=== PATIENT | male | born 1995 | race Two or more races ===

== ENCOUNTER 2025-01-31 20:53 | Day surgery (SDC) | payer OTHER, SELFPAY ==
[2025-01-31 14:46] VITALS: BP 160/108
[2025-01-31 15:22] LABS: Hematocrit 48.3 % (39.0-52.0); Hemoglobin 16.3 g/dL (13.0-18.0); Mean Corp Hgb Conc. 33.7 g/dL (33.0-37.0); Mean Corpuscular Volume 82.7 fL (80.0-94.0); Nucleated Red Blood Cells % 0 % (-); Platelet Count 296 10^3/uL (130-400); Red Cell Dist. Width 11.7 % (11.5-14.5)
[2025-01-31 15:25] LABS: ALT (SGPT) 23 U/L (0-50); AST (SGOT) 26 U/L (17-59); Albumin 5.6 g/dl (3.5-5.0); Alkaline Phosphatase 63 U/L (38-126); Blood Urea Nitrogen 14 mg/dl (9-20); Calcium 10.5 mg/dl (8.4-10.2); Carbon Dioxide 31 mmol/L (22-30); Chloride 98 mmol/L (98-107); Glucose 118 mg/dl (70-99); Lipase 172 U/L (23-300); Potassium 4.8 mmol/L (3.5-5.1); Sodium 141 mmol/L (135-145); Total Protein 9.3 g/dl (6.3-8.2); eGFR > 60.00
[2025-01-31 15:39] LABS: Troponin I < 0.012 ng/ml
[2025-01-31 18:09] VITALS: BP 129/79; BMI 25.4
[2025-01-31] MEDS: MAALOX 50 PO (18:37)
[2025-01-31 19:28] VITALS: BP 117/87
--- NOTE | 2025-01-31 19:30 | ED.GENMED ---
History of Present Illness
<Ana Price PA-C - Last Filed: 02/01/25 10:48>
General
Chief Complaint: Abdominal Pain
Source: patient
Exam Limitations: none
Time Seen by Provider: 01/31/25 18:08
Nursing documentation reviewed up to this point in time: agreed with
History of Present Illness
History of Present Illness:
Patient is a 29-year-old male who presents to the emergency department with 1 day of abdominal pain. He states that he was at his job site earlier this morning when he developed pain in the middle of his abdomen. He felt that abdominal pain
started to migrate up to his upper abdomen/lower chest. He had a few episodes of vomiting. He denies any known fever. No diarrhea or constipation. He denies any associated shortness of breath, lightheadedness/dizziness, or diaphoresis.
By time of my assessment, patient still describes a vague discomfort in epigastric region. He has not had any vomiting since arriving to the emergency department. He denies any exertional or cardiac component to symptoms.
He has no urinary complaints.
Patient is currently in town for work although lives in [place].
Review of Systems
<Ana Price PA-C - Last Filed: 02/01/25 10:48>
Review of Systems
Allergies reviewed?: Yes
All Other Systems: ROS reviewed and negative except as documented in HPI and ROS
Phy Exam
<Ana Price PA-C - Last Filed: 02/01/25 10:48>
Physical Exam
Physical Exam:
Vitals: Hypertensive on arrival, improved by my assessment. Afebrile
General: Patient is well appearing, no distress
Skin: Warm and dry, no rashes or lesions
Head: Normocephalic, atraumatic
Eyes: Sclera nonicteric.
Throat: Protecting airway
Neck: Normal ROM, no cervical spine tenderness, no meningismus
Cardiac: Regular rate and rhythm, no murmurs. No reproducible chest wall tenderness.
Pulm: Normal respiratory effort. Lungs clear bilaterally
Abdomen: Abdomen soft. Mild tenderness in epigastric region. No focal tenderness McBurney's point. No rebound or guarding.
Extremities: No evidence of cyanosis or edema
Neuro: AAOx3. Grossly intact.
Psychiatric: Normal affect.
Course
<Ana Price PA-C - Last Filed: 02/01/25 10:48>
Orders/Labs/Results
Orders:
Orders
01/31/25 14:48
Electrocardiogram (*1) Urgent
Reason for Study: Chest Pain
01/31/25 14:49
EKG- Treatment ONCE
01/31/25 15:05
Complete Blood Count/With Diff Urgent
Comprehensive Metabolic Panel Urgent
Lipase Urgent
Troponin I Urgent
01/31/25 18:16
CT Abd/pelvis W Iv Cont Urgent
Comment:
Reason For Exam: Diffuse abdominal pain
01/31/25 18:17
Mag Hydrox/Al Hydrox/Simeth [Maalox] 30 ml Phenobarb/Hyoscy/Atropine/Scop [] 10 ml Viscous Lidocaine 2% [Xylocaine Viscous Cup] 10 ml PO NOW
01/31/25 18:36
Mag Hydrox/Al Hydrox/Simeth [Maalox] 30 ml .ROUTE .STK-MED ONE
Phenobarb/Hyoscy/Atropine/Scop [] 10 ml .ROUTE .STK-MED ONE
Viscous Lidocaine 2% [Xylocaine Viscous Cup] 15 ml .ROUTE .STK-MED ONE
01/31/25 19:30
Troponin I Urgent
01/31/25 19:52
Piperacillin/Tazo 3.375 Gram [Zosyn] 3.375 gram in 50 ml IV NOW
01/31/25 20:37
Admit/Transfer Patient As Directed
Co-Sign Provider:
Level of Care: Observation services
Assign to:: Medical/Surgical
Physician / Group: Dr. Crisostomo/ surgical
Diagnosis: acute appendicitis
01/31/25 20:38
Code Status As Directed
Resuscitation Status: Full Code
PRN Pain Medication Management As Directed
May give lesser potent ordered pain med per pt: Yes
preference::
Protocol:: Medication orders for pain may be administered in a
manner that supports deferring to patient preference
when the pt is:
- Requesting an ordered lesser potent pain medication.
Least to most potent pain medications are defined
as: acetaminophen < NSAID < tramadol < opioids
(morphine, oxycodone, hydromorphone).
- Requesting a lesser dose of the same medication IF
ORDERED.
- Requesting a less intrusive route of administration
if both routes are prescribed by the provider (PO <
IV).
01/31/25 21:42
0.9% Sodium Chloride 1000 ml [Nss] 1,000 ml IV 80 mls/hr
Acetaminophen [Tylenol] 650 mg PO Q4HPRN PRN
Bisacodyl [Dulcolax] 10 mg RECTAL [id number] PRN
Docusate W/Senna [Senokot-S] 1 tablet PO BIDPRN PRN
Mag Hydrox/Al Hydrox/Simeth [Maalox] 30 ml PO Q6HPRN PRN
Ondansetron Injectable [Zofran] 4 mg IV Q6HPRN PRN
Polyethylene Glycol Powder [Miralax] 17 grams PO DAILYPRN PRN
01/31/25 21:42
Activity As Directed
Activity Level: As Tolerated
Vital Signs As Directed
Frequency: Per unit guidelines
DX Deep Vein Thrombosis Video Routine
01/31/25 21:54
HYDROmorphone [Dilaudid] 0.25 mg IV Q3HPRN PRN
02/01/25 02:00
Piperacillin/Tazo 3.375 Gram [Zosyn] 3.375 gram in 50 ml IV Q6H
02/01/25 Breakfast
NPO
Allow oral meds: Yes
Allow clear liquids: No
02/01/25 07:32
Basic Metabolic Panel IN AM
Complete Blood Count/No Diff IN AM
02/01/25 18:00
Enoxaparin Sodium [Lovenox] 30 mg SC QPM
Abnormal Lab Results
01/31/25
15:05
WBC 16.6 H 10^3/uL
(4.8-10.8)
MPV 11.1 H fL
(7.4-10.4)
Abs Immat Gran (auto) 0.1 H 10^3/uL
(0-0.05)
Absolute Neuts (auto) 14.1 H 10^3/uL
(1.4-6.5)
Neutrophils % 85.2 H %
(42.2-75.2)
Lymphocytes % 10.0 L %
(20.5-51.1)
Carbon Dioxide 31 H mmol/L
(22-30)
Glucose 118 H mg/dl
(70-99)
Calcium 10.5 H mg/dl
(8.4-10.2)
Total Protein 9.3 H g/dl
(6.3-8.2)
Albumin 5.6 H g/dl
(3.5-5.0)
01/31/25 15:05
01/31/25 15:05
Vital Signs
Initial and Last Documented VS:
Initial Vital Signs
Temp Pulse Resp BP Pulse Ox
98.3 F 61 22 160/108 100
01/31/25 14:46 01/31/25 14:46 01/31/25 14:46 01/31/25 14:46 01/31/25 14:46
Last Documented Vital Signs
Temp Pulse Resp BP Pulse Ox
98.5 F 64 16 107/66 96
02/01/25 08:32 02/01/25 08:32 02/01/25 08:32 02/01/25 08:32 02/01/25 08:32
<Edie Dickinson, - Last Filed: 01/31/25 19:34>
Orders/Labs/Results
Orders:
Orders
01/31/25 14:48
Electrocardiogram (*1) Urgent
Reason for Study: Chest Pain
01/31/25 14:49
EKG- Treatment ONCE
01/31/25 15:05
Complete Blood Count/With Diff Urgent
Comprehensive Metabolic Panel Urgent
Lipase Urgent
Troponin I Urgent
01/31/25 18:16
CT Abd/pelvis W Iv Cont Urgent
Comment:
Reason For Exam: Diffuse abdominal pain
01/31/25 18:17
Mag Hydrox/Al Hydrox/Simeth [Maalox] 30 ml Phenobarb/Hyoscy/Atropine/Scop [] 10 ml Viscous Lidocaine 2% [Xylocaine Viscous Cup] 10 ml PO NOW
01/31/25 18:36
Mag Hydrox/Al Hydrox/Simeth [Maalox] 30 ml .ROUTE .STK-MED ONE
Phenobarb/Hyoscy/Atropine/Scop [] 10 ml .ROUTE .STK-MED ONE
Viscous Lidocaine 2% [Xylocaine Viscous Cup] 15 ml .ROUTE .STK-MED ONE
01/31/25 19:30
Troponin I Urgent
01/31/25 19:52
Piperacillin/Tazo 3.375 Gram [Zosyn] 3.375 gram in 50 ml IV NOW
01/31/25 20:37
Admit/Transfer Patient As Directed
Co-Sign Provider:
Level of Care: Observation services
Assign to:: Medical/Surgical
Physician / Group: Dr. Crisostomo/ surgical
Diagnosis: acute appendicitis
01/31/25 20:38
Code Status As Directed
Resuscitation Status: Full Code
PRN Pain Medication Management As Directed
May give lesser potent ordered pain med per pt: Yes
preference::
Protocol:: Medication orders for pain may be administered in a
manner that supports deferring to patient preference
when the pt is:
- Requesting an ordered lesser potent pain medication.
Least to most potent pain medications are defined
as: acetaminophen < NSAID < tramadol < opioids
(morphine, oxycodone, hydromorphone).
- Requesting a lesser dose of the same medication IF
ORDERED.
- Requesting a less intrusive route of administration
if both routes are prescribed by the provider (PO <
IV).
01/31/25 21:42
0.9% Sodium Chloride 1000 ml [Nss] 1,000 ml IV 80 mls/hr
Acetaminophen [Tylenol] 650 mg PO Q4HPRN PRN
Bisacodyl [Dulcolax] 10 mg RECTAL [id number] PRN
Docusate W/Senna [Senokot-S] 1 tablet PO BIDPRN PRN
Mag Hydrox/Al Hydrox/Simeth [Maalox] 30 ml PO Q6HPRN PRN
Ondansetron Injectable [Zofran] 4 mg IV Q6HPRN PRN
Polyethylene Glycol Powder [Miralax] 17 grams PO DAILYPRN PRN
01/31/25 21:42
Activity As Directed
Activity Level: As Tolerated
Vital Signs As Directed
Frequency: Per unit guidelines
DX Deep Vein Thrombosis Video Routine
01/31/25 21:54
HYDROmorphone [Dilaudid] 0.25 mg IV Q3HPRN PRN
02/01/25 02:00
Piperacillin/Tazo 3.375 Gram [Zosyn] 3.375 gram in 50 ml IV Q6H
02/01/25 Breakfast
NPO
Allow oral meds: Yes
Allow clear liquids: No
02/01/25 07:32
Basic Metabolic Panel IN AM
Complete Blood Count/No Diff IN AM
02/01/25 18:00
Enoxaparin Sodium [Lovenox] 30 mg SC QPM
Abnormal Lab Results
01/31/25
15:05
WBC 16.6 H 10^3/uL
(4.8-10.8)
MPV 11.1 H fL
(7.4-10.4)
Abs Immat Gran (auto) 0.1 H 10^3/uL
(0-0.05)
Absolute Neuts (auto) 14.1 H 10^3/uL
(1.4-6.5)
Neutrophils % 85.2 H %
(42.2-75.2)
Lymphocytes % 10.0 L %
(20.5-51.1)
Carbon Dioxide 31 H mmol/L
(22-30)
Glucose 118 H mg/dl
(70-99)
Calcium 10.5 H mg/dl
(8.4-10.2)
Total Protein 9.3 H g/dl
(6.3-8.2)
Albumin 5.6 H g/dl
(3.5-5.0)
01/31/25 15:05
01/31/25 15:05
Vital Signs
Initial and Last Documented VS:
Initial Vital Signs
Temp Pulse Resp BP Pulse Ox
98.3 F 61 22 160/108 100
01/31/25 14:46 01/31/25 14:46 01/31/25 14:46 01/31/25 14:46 01/31/25 14:46
Last Documented Vital Signs
Temp Pulse Resp BP Pulse Ox
98.5 F 64 16 107/66 96
02/01/25 08:32 02/01/25 08:32 02/01/25 08:32 02/01/25 08:32 02/01/25 08:32
<Ana Price PA-C - Last Filed: 02/01/25 10:48>
MDM/Problems Addressed
Differential Diagnosis Includes:
Not limited to: Gastroenteritis, gastritis, peptic ulcer, biliary colic, acute cholecystitis, appendicitis, etc.
MDM/Problems Addressed:
29-year-old male with one day of abdominal pain and episode of vomiting. Symptoms mildly improved by my evaluation however still has discomfort in upper abdomen. Vitals stable. On exam, patient well appearing and in no distress. Abdomen is soft with
mild tenderness in epigastric region. No focal tenderness at McBurneys point. No rebound or guarding.
Prior to my evaluation, basic labs were sent significant for a leukocytosis of 16.6. Chemistry unremarkable. Given upper abdominal discomfort and report of chest pain, a troponin was sent in triage, which was undetectable.
Symptoms somewhat vague. Given location of discomfort, considered gastritis v. GERD v. pancreatitis? Possible biliary etiology. Very low suspicion for cardiac etiology.
Will give G.I. cocktail and obtain CT scan abdomen/pelvis to r/o acute intra-abdominal process.
Update: CT scan shows acute appendicitis without evidence of perforation or abscess. Discussed with patient and at bedside. Zosyn given in ED.
Patient accepted to general surgery service in stable condition with plan for OR tomorrow.
Chronic conditions affecting care:
N/A
Acute Exacerbation and/or Progression of Chronic Illness:
N/A
<Ana Price PA-C - Last Filed: 02/01/25 10:48>
*Radiology
Radiology exam reviewed: radiology read reviewed
*Pulse Oximetry
SaO2: 98
Oxygen Mode of Delivery: Room air
Patient hypoxic: no
*EKG
Interpreted by ED Provider?: NA
*Life Consultant Interpretation
Rate: Life Consultant- N/A
*Critical Care Note
Total Time (30-74mins, 75-104mins- exclusive of procedures): Not Applicable
<Ana Price PA-C - Last Filed: 02/01/25 10:48>
Patient Management
Discussion with other providers: [employer] (Case discussed with general surgery)
ED Attending Note
<Ana Price PA-C - Last Filed: 02/01/25 10:48>
-
Portions of this chart may have been created with voice recognition software.� Occasional wrong word or��sound alike� substitutions may have occurred due to the inherent limitations of voice recognition software.
<Edie Dickinson DO - Last Filed: 01/31/25 19:34>
ED Attending Note
Patient seen and examined by attending physician: Yes
I performed the substantive portion of visit, reviewed & personally made and approve the management plan that is documented in note by myself or IRA.: Yes
I performed a history and physical exam of patient and discussed management with resident, I reviewed resident's note and agree with documented findings and plan of care.: Yes
ED Attending Note:
29-year-old male presents the ER for evaluation of upper abdominal discomfort starting this morning along with nausea. He reports feeling well at time of interview. He denies any prior history of abdominal surgery. He is visiting the area from
[place]. Vital signs reviewed, patient is awake, alert, wearing glasses, sclera anicteric, abdomen is soft with mild diffuse pain on palpation, positive tympanitic distention, no guarding or rebound, GCS is 15. Labs reveal elevated white blood
count. CT scan ordered by physician biology laboratory assistant and reviewed with radiologist along with ADA concerning for acute appendicitis. I discussed this information with the patient. He would like to speak with his prior to further discussion of need
for admission for surgical treatment.
Discharge Plan
Departure
Patient Disposition: Admit
Date of Disposition: 01/31/25
Time of Disposition: 19:54
Admit to doctor: Dr. Crisostomo
Presentation/result/management discussed w/ accepting MD/DO: General Surgery
Discharge Problem:
Acute appendicitis
Interventions
Interventions:
*Risk Screen - Suicide Last Done: 01/31/25 19:14
*General Assessment Last Done: 01/31/25 18:34
*Neglect/Abuse Screening Last Done: 01/31/25 18:34
*ED- Fall Risk Assessment Last Done: 01/31/25 18:34
*ED COVID-19 Vaccine History Last Done: 01/31/25 18:34
*ED Influenza Vaccine History Last Done: 01/31/25 18:34
*Nursing Disposition Last Done: 01/31/25 21:18
LJ-Wtdhul-Buarvqtegp Assessment Last Done: 01/31/25 18:40
Discharge Date and Time
Discharge Date/Time: 01/31/25 21:45
[2025-01-31] MEDS: ZOSYN 50 IV (20:04)
[2025-01-31 20:20] LABS: Troponin I < 0.012 ng/ml
--- NOTE | 2025-01-31 20:42 | HPS.HSE ---
Addendum entered and electronically signed by Leon Mendez MD 02/01/25 09:22:
Patient seen and examined.
Patient is a 29 yo M with no pertinent PMH who presented to the hospital with less than 24 hours of abdominal discomfort. He states that his symptoms began acutely yesterday afternoon. He describes a generalized abdominal discomfort as well as
some epigastric pain. He does report some discomfort with urination. Just prior to presentation in the ER as well as currently his pain and discomfort has significantly improved and almost resolved. Several episodes of nausea and vomiting prior
to presentation. No fevers or chills. No chronic GI issues. Family history unremarkable for IBD or colon cancer.
Gen: NAD
Abd: soft, minimal discomfort in epigastrium and supra-pubic location, ND, non-peritoneal
Labs and CT scan imaging were reviewed.
Patient is a 29 yo M p/w acute appendicitis
CT scan imaging as a relates to his appendix was reviewed. We discussed that CT scan imaging is 98 to 99% sensitive and specific for appendicitis. Significant clinical improvement in his symptoms just prior to admission and with antibiotic
treatment. This is further supported by normalization in his WBC. The natural history and pathophysiology of appendicitis was discussed. Anatomy was reviewed. Options for management including medical management with antibiotics versus surgical
management with appendectomy were considered and discussed. The pros and cons of both approaches was discussed. Specifically, we discussed failure of medical management and increased risk for future episodes of appendicitis versus surgical risks.
Patient would like to proceed with appendectomy.
Plan for a laparoscopic appendectomy. The procedure itself, as well as the risks, benefits, and alternatives was discussed. Specifically, we discussed risks of bleeding, infection, injury to surrounding structures (bowel, bladder), staple line
leak, need for open procedure. Typical postprocedural recovery was discussed. All questions answered. Consent signed.
-- Laparoscopic appendectomy
-- NPO, IVF
-- Antibiotics: Zosyn
Original Note:
Family Physician
-
Family Physician: * NONE
Chief Complaint
-
Abdominal Pain
History of Present Illness
a 29 years old with no PMH present to ER with a complain of abdominal pain. 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
work. Described pain as aching. Had 3 episodes of vomiting and did not eat any thing since then. Took Tums and Pepcid without relief. He mentioned that he is getting constipation despite fiber intake. Denies sob, fever, chills or diarrhea.
He mentioned that he has slightly elevated cholesterol level and working on his diet. Patient is not receiving meds at home and has no previous history of surgeries. Patient is comfortable during the exam without abdominal pain but some epigastric
pain present. Neg for troponin in ER x2.
Medical History
Past Medical History
Past Medical History: Reports None
Past Surgical History: Reports None
Social History
Tobacco: Former Smoker (used to smoke occasionally 2 years ago)
Alcohol: Former (Used to drink occasionally 2 years ago )
Drug: None
Personal:
Living: With Family
Employment: Employed
Family History
Family History: Not pertinent
Allergies / Home Medications
Allergies reflects when Allergies were last updated in [facility].
Home Medications with original date entered in [facility]
Allergy/Medication List:
Patient Allergies
Allergy/AdvReac Type Severity Reaction Status Date / Time
No Known Allergies Allergy Verified 01/31/25 14:47
Home Medications Table - record
�Medication �Instructions �Recorded �Confirmed
No Meds [No Current Medications] 01/31/25 01/31/25
Review of Systems
-
A 12 point ROS was completed and negative except as noted: Yes
Constitutional: Reports No Symptoms
EENT: Reports No Symptoms
Respiratory: Reports No Symptoms
Cardiac: Reports No Symptoms
Abdomen/GI: Reports Abdominal Pain (No pain during the assessment time), Vomiting and Constipated
: Reports No Symptoms
Musculoskeletal: Reports No Symptoms
Physical Exam
Vital Signs
Vital Signs
Temp Pulse Resp BP Pulse Ox
98.3 F 84 14 117/87 98
01/31/25 14:46 01/31/25 20:05 01/31/25 19:30 01/31/25 19:28 01/31/25 20:05
Physical Exam
General: Well Nourished and No Apparent Distress
Respiratory: Clear
Cardiac: Regular Rhythm
GI: Soft, Non Tender, Non Distended and Normal Bowel Sounds
Neuro: Awake and AO x 3
Psych: Calm
Laboratory Results
-
01/31/25 15:05
01/31/25 15:05
Laboratory Results
Total Bilirubin 1.0 mg/dl (0.2-1.3) 01/31/25 15:05
AST 26 U/L (17-59) 01/31/25 15:05
ALT 23 U/L (0-50) 01/31/25 15:05
Alkaline Phosphatase 63 U/L (38-126) 01/31/25 15:05
Troponin I < 0.012 ng/ml 01/31/25 19:30
Lipase 172 U/L (23-300) 01/31/25 15:05
Data Reviewed
-
Medical Tests (Nuc Med, Echo, EKG etc): Discussed with Patient
Impression/Plan
-
CT Abd/PLVS shows ACUTE APPENDICITIS. There is no evidence for periappendiceal abscess.
WBC 16.6
IMPRESSION:
Acute Appendicitis
PLAN:
Admit/ observation/ med-surg /surgical services (Dr. Crisostomo)
NPO
IVF
Abx Zosyn
Analgesics as needed.
Antiemetics as needed
Constipation
bowel regimen as needed.
DVT prophylaxis Lovenox sq
Code status Full code.
[2025-01-31 21:00] VITALS: BP 117/77
[2025-01-31 22:00] VITALS: BP 94/59; BMI 25.7
[2025-01-31] MEDS: NSS 1000 IV (22:15)
[2025-01-31 23:49] VITALS: BP 103/57
[2025-02-01] VITALS (9 sets, daily range): BP systolic 95–120; BP diastolic 61–71
[2025-02-01] MEDS: ZOSYN 50 IV ×2 (02:52→09:05)
[2025-02-01 08:16] LABS: Hematocrit 45.0 % (39.0-52.0); Hemoglobin 14.9 g/dL (13.0-18.0); Mean Corp Hgb Conc. 33.1 g/dL (33.0-37.0); Mean Corpuscular Volume 85.6 fL (80.0-94.0); Platelet Count 237 10^3/uL (130-400); Red Cell Dist. Width 11.9 % (11.5-14.5)
[2025-02-01 08:45] LABS: Blood Urea Nitrogen 11 mg/dl (9-20); Calcium 9.7 mg/dl (8.4-10.2); Carbon Dioxide 27 mmol/L (22-30); Chloride 101 mmol/L (98-107); Estimated Creatinine Clearance 93 ml/min; Glucose 95 mg/dl (70-99); Potassium 4.0 mmol/L (3.5-5.1); Sodium 136 mmol/L (135-145); eGFR > 60.00
[2025-02-01] MEDS: NSS 1000 IV (09:08)
--- NOTE | 2025-02-01 09:22 | W.SUR.PREOP ---
Pre-Operative Surgical Note
-
I have examined this patient prior to the performance of the scheduled procedure.
The patient's condition is unchanged from the time of the current History and
Physical and the patient is able to undergo the scheduled procedure.
--- NOTE | 2025-02-01 10:15 | CM ---
CM reviewed chart and met with pt bedside in ED. Lives with his in second floor apartment in [place], full flight to enter.
Staying locally for work, his is with him. Pt is having appendectomy at 12 noon today.
Independent in ADLs, personal care and ambulation at baseline.
OBS form reviewed and signed, copy left with pt.
Confirms prescription coverage.
No hx VN or SNF
PCP: Dr Goss in [place]
Local Pharmacy: [facility]
Anticipate discharge home, no needs. CM will continue to follow for any discharge planning needs.
--- NOTE | 2025-02-01 13:50 | PTCARENOTE ---
Gave report to receiving OR nurse and sent iv abx to OR
--- NOTE | 2025-02-01 15:06 | W.IMMPOSTOP ---
Surgical Immed Post Op Note
-
Primary Surgeon: Andrea
Assisting Surgeon: None
Pre-op Diagnosis: Acute appendicitis
Post-op Diagnosis: Acute appendicitis
Procedure Performed: Laparoscopic appendectomy
Anesthesia Type: General
Specimen / Cultures:
1. Appendix
Estimated Blood Loss: 3 cc
Complications: None
Operative Findings:
1. Dilated and hyperemic appendix, no evidence of perforation or contamination
2. Mesentery taken with Ligasure, base with pillai load stapler
[2025-02-01] MEDS: ZOSYN IV (15:16)
[2025-02-01] MEDS: DILAUDID 0.25 MG IV ×2 (15:25→15:43)
[2025-02-01] MEDS: TYLENOL 650 MG PO (18:47)
== END 2025-02-01 19:08 | disposition home or self-care (01) ==
LOC: SDS 20:53
PROVIDERS: Nurse Practitioner Family; Physician Assistant; ATTENDING PHYSICIAN Surgery; EMERGENCY PHYSICIAN Emergency Medicine
DX: K35.80 Unspecified acute appendicitis (principal); K59.00 Constipation, unspecified; R10.9 Unspecified abdominal pain; R07.9 Chest pain, unspecified; R00.1 Bradycardia, unspecified; D72.829 Elevated white blood cell count, unspecified; N32.89 Other specified disorders of bladder; Q76.49 Other congenital malformations of spine, not associated with scoliosis; K21.9 Gastro-esophageal reflux disease without esophagitis; Z87.891 Personal history of nicotine dependence
CPT/HCPCS: 44970; 74177; 80048; 80053; 83690; 84484; 85025; 85027; 88304; 93005; 96365; 99285; G0378; Q9967